=== PATIENT | female | born 1950 | race Caucasian/White ===

== ENCOUNTER 2021-01-26 17:52 | Emergency (ER) | payer OTHER ==
[~2021-01-26] VITALS: Ht 149.9 cm; Wt 61.7 kg
[2021-01-26 17:56] VITALS: BP_SYST 154
--- NOTE | 2021-01-26 18:06 | NUR ---
Patient to ER bed 07 to gown for evaluation. Side rails up.
--- NOTE | 2021-01-26 18:11 | NUR ---
MD VIZCARRA AT BEDSIDE ASSESSING PT.
[2021-01-26] MEDS ORDERED: ACETAMINOPHEN/CODEINE 300 MG-30 MG TABLET PO ONE (18:45)
[2021-01-26] MEDS ORDERED: NALOXONE HCL 0.4 MG/ML AMP (NARCAN) IVP PRN (18:45)
[2021-01-26] MEDS ORDERED: HYDR-3917 PO (19:06)
--- NOTE | 2021-01-26 19:20 | NUR ---
Pt BIB family to ED with history of type 2 diabetes, hypercholesterolemia ambulatory to the emergency department with a chief complaint of right wrist pain status post mechanical fall. Patient tripped while walking on a stair reached out to her arm and broke her fall with her wrist, foosh type injury. Patient denies head trauma or loss of consciousness. Patient reports exacerbated pain with extension and flexion of digits
[2021-01-26 20:00] VITALS: BP_SYST 154
--- NOTE | 2021-01-26 20:00 | NUR ---
Patient given written and verbal discharge instructions and verbalizes understanding. ER MD discussed with patient the results and treatment provided. Patient in stable condition. ID arm band removed. Rx of Glen given. Patient educated on pain management and to follow up with PMD. Pain Scale 0/10 Opportunity for questions provided and answered. Medication side effect fact sheet provided.
== END 2021-01-26 20:00 | disposition home or self-care (01) ==
LOC: SED 17:52
DX: S52.501A Unspecified fracture of the lower end of right radius, initial encounter for closed fracture (principal); E11.9 Type 2 diabetes mellitus without complications; W01.10XA Fall on same level from slipping, tripping and stumbling with subsequent striking against unspecified object, initial encounter; Y93.01 Activity, walking, marching and hiking; Y92.89 Other specified places as the place of occurrence of the external cause; Y99.8 Other external cause status
CPT/HCPCS: 99283